=== PATIENT | female | born 1985 | race Native Hawaiian/Other Pacific Islander ===

== ENCOUNTER 2020-08-10 07:25 | Outpatient (CLI) | payer OTHER ==
[2020-08-10 07:59] LABS: PLATELET COUNT 281 K/uL (152-353)
[2020-08-10 08:33] LABS: POTASSIUM 3.9 mmol/L (3.6-5.2)
== END 2020-08-10 21:02 | disposition home or self-care (01) ==
LOC: LABW 07:25
PROVIDERS: ATTEND Nurse Practitioner Family
DX: F31.9 Bipolar disorder, unspecified (principal)
CPT/HCPCS: 36415; 80053; 81000; 84443; 85027